=== PATIENT | male | born 1990 | race Caucasian/White ===

== ENCOUNTER → 2017-10-14 | Outpatient (CLI) | payer OTHER ==
--- NOTE | 2017-10-14 15:12 | RADIOLOGY IMAGING REPORT ---
FACILITY: [facility] [place] PATIENT NAME: Cristopher Romero : 1990 MR: [id number] V: [id number] EXAM DATE: ORDERING PHYSICIAN: JUAN HARRIS TECHNOLOGIST: Location: [facility] - [place], [place] Patient: Cristopher Romero : 1990 Visit/Account:[id number] Date of Sevice: 10/14/2017 Examination: ORBITS FOREIGN BODY 1 VIEW Comparison: None. History: MRI clearance. Findings: Dental amalgam. No radiopaque foreign body in or around the region of the orbits. IMPRESSION: No metallic foreign body in the region of the orbits. Report Dictated By: Bassem Umana MD at 10/14/2017 3:07 PM Report E-Signed By: Bassem Umana MD at 10/14/2017 3:08 PM WSN:[id number]
--- NOTE | 2017-10-14 16:17 | RADIOLOGY IMAGING REPORT ---
FACILITY: [facility] PATIENT NAME: Cristopher Romero : 1990 MR: [id number] V: [id number] EXAM DATE: ORDERING PHYSICIAN: JUAN HARRIS TECHNOLOGIST: Location: [facility] Patient: Cristopher Romero : 1990 Visit/Account:[id number] Date of Sevice: 10/14/2017 T SPINE W/O CONTRAST INDICATION: Back pain COMPARISON: None TECHNIQUE: Multiplane noncontrast MR imaging performed through the thoracic spine. FINDINGS: Vertebral body and disc space heights are normal. Normal static alignment. Fiducial marker localizi ng the site of pain posteriorly is at the T7 level. No cord signal abnormality. Normal marrow signal. The visible extraspinal structures are normal. Normal foramen. 2 mm posterior T7-8 disc protrusion contacts the right anterior aspect of the cord with resultant min imal cord deformity without cord edema. This effaces the right sided CSF anterior to the cord and ot herwise results in no significant thecal sac/canal narrowing. IMPRESSION: 2 mm posterior right T7-8 disc protrusion contacts the anterior right aspect of the cord with resulta nt minimal cord deformity. No cord edema. This disc protrusion effaces the right sided CSF anterior to the cord and otherwise results in no significant thecal sac/canal narrowing. Otherwise normal thoracic spine MRI. Report Dictated By: Brigido Young MD at 10/14/2017 4:06 PM Report E-Signed By: Brigido Young MD at 10/14/2017 4:13 PM WSN:[id number]
== END ==
LOC: MRI 14:28
PROVIDERS: ATTEND Nurse Practitioner Gerontology
DX: M51.24 Other intervertebral disc displacement, thoracic region (principal)
CPT/HCPCS: 70030; 72146